=== PATIENT | female | born 1975 | race Caucasian/White ===

== ENCOUNTER → 2016-10-15 | Outpatient (CLI) | payer OTHER ==
[~2016-10-15] MED LIST: COLACE-DPS100 MG PO; HUMALOG100 UNIT/2 SQ; MILK OF MAGNESI10 ML PO; MIRALAX PACKET17 GM PO; MOTRIN-DPS800 MG PO; NIPPLECREAM TP; PERCOCET 5 DPS1 TAB PO; PRENATAL VIT1 TAB PO; TRANDATE DPS100 MG PO
== END | disposition home or self-care (01) ==
LOC: PTH.S 10-12 09:00
DX: E11.8 Type 2 diabetes mellitus with unspecified complications (principal); I10 Essential (primary) hypertension; E55.9 Vitamin D deficiency, unspecified; Z79.4 Long term (current) use of insulin